=== PATIENT | male | born 1995 | race African-American/Black ===

== ENCOUNTER 2017-09-08 20:24 | Emergency (ER) | payer SELFPAY ==
[~2017-09-08] VITALS: Ht 172.7 cm; Wt 77.0 kg
[2017-09-08 22:12] VITALS: BP 110/76
== END 2017-09-08 22:13 | disposition home or self-care (01) ==
LOC: EMS 20:25
DX: K02.9 Dental caries, unspecified (principal); F17.220 Nicotine dependence, chewing tobacco, uncomplicated
CPT/HCPCS: 99283